=== PATIENT | male | born 1955 | race Caucasian/White ===

== ENCOUNTER 2019-05-14 17:14 | Emergency (ER) | payer BC, MEDICARE ==
[~2019-05-14 17:14] MED LIST: Iopamidol 370 76% 100 ML VIAL ONE
[2019-05-14 17:56] LABS: #Basophils 0.1 thou/uL (0.0-0.2); #Eosinphils 0.4 thou/uL (0.0-0.7); #Lymphocytes 2.4 thou/uL (1.20-3.40); #Neutrophils 8.6 thou/uL (1.40-6.50); %Basophils 0.9 % (0.0-1.0); %Lymphocytes 19.3 % (21.0-51.0); %Monocytes 7.8 % (0.0-10.0); %Neutrophils 69.1 % (42.0-75.0); Hemoglobin 16.5 g/dL (14.0-18.0); Mean Corpuscular Hemoglobin 30.1 pg (27.0-31.0); Mean Corpuscular Volume 93.9 fL (78.0-98.0); Mean Platelet Volume 10.8 fL (7.4-10.4); Platelet Count 229 thou/uL (130-400); RBC Distribution Width 12.5 % (11.5-14.5); Red Blood Cell (RBC) Count 5.47 mill/uL (4.70-6.10); White Blood Cell (WBC) Count 12.4 thou/uL (4.8-10.8)
[2019-05-14] MEDS ORDERED: methylPREDNISolone Sod Succ/PF 125 MG/2 ML VIAL ONE (18:01)
[2019-05-14 18:11] LABS: ALT (SGPT) 31 U/L (8-55); AST (SGOT) 19 U/L (5-34); Alkaline Phosphatase 74 U/L (40-110); Anion Gap 15 mmol/L (10-20); BUN (Urea Nitrogen) 19 mg/dL (8.4-25.7); Bilirubin, Total 0.4 mg/dL (0.2-1.2); Calc. Creatinine Clearance 0 mL/min (70-130); Calcium 9.4 mg/dL (7.8-10.44); Carbon Dioxide 26 mmol/L (23-31); Chloride 103 mmol/L (98-107); Estimated GFR-MDRD 78; Globulin 2.7 g/dL (2.4-3.5); Glucose 87 mg/dL (80-115); Potassium 4.3 mmol/L (3.5-5.1); Protein, Total 6.7 g/dL (5.8-8.1); Sodium 140 mmol/L (136-145)
--- NOTE | 2019-05-14 18:57 | CT ---
CT Neck Soft Tissue W Con History: Laryngitis Comparison: None. Findings: Mild emphysematous changes in the lung apices. Mild abnormal thickening of the vocal cord i tself. Bilateral palatine tonsillitis. No evidence for peritonsillar abscess. Submandibular and parotid glands are normal. Chronic bilateral maxillary sinusitis. Mild ethmoid sinusitis. Mastoids are relatively clear. Cervical spine alignment is maintained. No subluxation of the temporomandibular joints. Impression: 1. Abnormal nodular thickening of the vocal cord for which nonemergent ENT consultation and direct vi sualization is recommended. 2. Bilateral palatine tonsillitis. No evidence for peritonsillar abscess. 3. Mild to moderate apical emphysematous change.
[2019-05-14] MEDS ORDERED: AMOXicillin 250 MG CAP ONE (19:07)
== END 2019-05-14 19:15 | disposition home or self-care (01) ==
LOC: EDBD 17:14 → NAV ERS 17:14
DX: J03.90 Acute tonsillitis, unspecified (principal); J38.2 Nodules of vocal cords; F32.9 Major depressive disorder, single episode, unspecified; F17.210 Nicotine dependence, cigarettes, uncomplicated; Z79.82 Long term (current) use of aspirin; Z79.899 Other long term (current) drug therapy
CPT/HCPCS: 70491; 80053; 84484; 85025; 93005; 94640; 94760; 96374; J2930; J7620